=== PATIENT | female | born 1990 | race Asian ===

== ENCOUNTER 2019-07-25 17:55 | Emergency (ER) | payer OTHER ==
[~2019-07-25] VITALS: Ht 167.6 cm; Wt 113.4 kg
[2019-07-25 18:33] VITALS: BP_SYST 95
[2019-07-25] MEDS ORDERED: SODIUM PHOSPHATE,MONO-DIBASIC 133 ML ENEMA RC ONE (19:45)
[2019-07-25 21:50] VITALS: BP_SYST 95
== END 2019-07-25 21:50 | disposition home or self-care (01) ==
LOC: SED 17:55
DX: K59.00 Constipation, unspecified (principal); Z88.1 Allergy status to other antibiotic agents
CPT/HCPCS: 36415; 74018; 84703; 99284